=== PATIENT | male | born 2000 | race Caucasian/White ===

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

== ENCOUNTER 2021-01-20 18:10 | Emergency (ER) | payer OTHER ==
[~2021-01-20 18:10] MED LIST: BENTYL 20MG TAB20 MG PO; LODINE CAP 300300 MG PO; ZOFRAN ODT 4 MG4 MG PO
== END 2021-01-20 20:05 | disposition home or self-care (01) ==
LOC: ER1 18:10
DX: H61.23 Impacted cerumen, bilateral (principal); Z90.89 Acquired absence of other organs
CPT/HCPCS: 99282

== ENCOUNTER 2021-03-18 00:25 | Emergency (ER) | payer OTHER ==
[2021-03-18 01:30] LABS: HEMOGLOBIN 15.2 gm/dl (14.0-17.5); RED BLOOD COUNT 5.05 M/UL (4.20-5.50); WHITE BLOOD COUNT 7.4 K/UL (4.5-11.0)
[2021-03-18 01:48] LABS: BUN/CREATININE RATIO 5 (0-10)
[2021-03-18] MEDS ORDERED: BENTYL 20MG TAB20 MG PO (05:00)
[2021-03-18] MEDS ORDERED: ZOFRAN4 MG PO (05:00)
[2021-03-18] MEDS ORDERED: PROTONIX40 MG PO (05:00)
[2021-03-19 10:10] LABS: HBSAG SCREEN Negative (Negative); HEP A AB, IGM Negative (Negative); HEP B CORE AB, IGM Negative (Negative); HEP C VIRUS AB <0.1 (0.0-0.9)
== END 2021-03-18 05:05 | disposition home or self-care (01) ==
LOC: ER1 00:25
PROVIDERS: Physician Assistant Medical
DX: K52.9 Noninfective gastroenteritis and colitis, unspecified (principal); R79.89 Other specified abnormal findings of blood chemistry; Z90.89 Acquired absence of other organs
CPT/HCPCS: 80053; 80074; 80307; 81001; 82150; 83690; 85025; 96374; 96375; 99284; C9113; G0480; J2405; Q9967

== ENCOUNTER 2021-05-02 03:12 | Emergency (ER) | payer OTHER ==
[~2021-05-02 03:12] MED LIST changes: +PROTONIX40 MG PO; +ZOFRAN4 MG PO
[2021-05-02 03:35] LABS: RED BLOOD COUNT 5.24 M/UL (4.20-5.50); WHITE BLOOD COUNT 9.1 K/UL (4.5-11.0)
[2021-05-02 04:04] LABS: BUN/CREATININE RATIO 10 (0-10)
== END 2021-05-02 07:45 | disposition home or self-care (01) ==
LOC: ER1 03:12
PROVIDERS: Emergency Medicine
DX: R10.11 Right upper quadrant pain (principal); R74.01 Elevation of levels of liver transaminase levels; I10 Essential (primary) hypertension
CPT/HCPCS: 80053; 83690; 85025; 96374; 96375; 99284; J2270; J2405; Q9967

== ENCOUNTER → 2021-05-29 | Outpatient (CLI) | payer OTHER ==
[~2021-05-29] MED LIST changes: +LISINOPRIL10 MG PO
== END ==
LOC: EXRD 08:44
DX: R79.89 Other specified abnormal findings of blood chemistry (principal); K80.20 Calculus of gallbladder without cholecystitis without obstruction
CPT/HCPCS: 76700

== ENCOUNTER → 2021-06-08 | Day surgery (SDC) | payer OTHER ==
[~2021-06-08] MED LIST changes: +HYDROCODON-ACE1 EAC4 PO
== END | disposition home or self-care (01) ==
LOC: OR 06:31
DX: K80.10 Calculus of gallbladder with chronic cholecystitis without obstruction (principal); I10 Essential (primary) hypertension; K21.9 Gastro-esophageal reflux disease without esophagitis; K76.0 Fatty (change of) liver, not elsewhere classified; E66.01 Morbid (severe) obesity due to excess calories; F41.9 Anxiety disorder, unspecified; J45.909 Unspecified asthma, uncomplicated; Z68.43 Body mass index [BMI] 50.0-59.9, adult; Z79.899 Other long term (current) drug therapy
CPT/HCPCS: C1729; J0690; J1100; J1170; J1885; J2001; J2250; J2405; J2704; J2710; J3010; J7030; J7120

== ENCOUNTER 2021-07-26 14:13 | Emergency (ER) | payer OTHER ==
[2021-07-26] MEDS ORDERED: DEBROX15 ML AU (16:05)
== END 2021-07-26 16:23 | disposition home or self-care (01) ==
LOC: ER1 14:13
DX: H61.21 Impacted cerumen, right ear (principal); I10 Essential (primary) hypertension
CPT/HCPCS: 69210; 99282